=== PATIENT | female | born 1980 | race Caucasian/White ===

== ENCOUNTER 2017-04-22 21:19 | Emergency (ER) | payer MEDICAID ==
[~2017-04-22] VITALS: Ht 175.3 cm; Wt 84.2 kg
[2017-04-22 21:19] VITALS: BP 118/84
[~2017-04-22 21:19] MED LIST: AZIT250T PO; BACDS PO; CARB15DR91 RIGHT EAR; CEPH-357 PO; FLUO20CA39 PO; HYDR-3965 PO; IVER3TAB2 PO; RIZA10TA27 PO; ZES10T PO
[2017-04-22] MEDS ORDERED: HYDROcodone/acetaminophen 10/325mg tab PO ONE (21:35)
[2017-04-22] MEDS ORDERED: NAPR-1154 PO (21:35)
== END 2017-04-22 21:49 | disposition home or self-care (01) ==
LOC: ER 21:19
DX: K08.89 Other specified disorders of teeth and supporting structures (principal); I10 Essential (primary) hypertension; J45.909 Unspecified asthma, uncomplicated; F15.10 Other stimulant abuse, uncomplicated; F11.10 Opioid abuse, uncomplicated; F17.210 Nicotine dependence, cigarettes, uncomplicated; Z88.0 Allergy status to penicillin; Z79.899 Other long term (current) drug therapy
CPT/HCPCS: 99283

== ENCOUNTER 2018-01-18 11:09 | Emergency (ER) | payer MEDICAID ==
[~2018-01-18] VITALS: Ht 175.3 cm; Wt 83.8 kg
[~2018-01-18 11:09] MED LIST changes: +NAPR-1154 PO
[2018-01-18 11:12] VITALS: BP 129/79
[2018-01-18] MEDS ORDERED: ALBU8.5H8 IH (11:38)
[2018-01-18] MEDS ORDERED: GUAI473S11 PO (11:38)
[2018-01-18] MEDS ORDERED: GUAI600T45 PO (11:38)
== END 2018-01-18 11:50 | disposition home or self-care (01) ==
LOC: ER 11:10
DX: J32.0 Chronic maxillary sinusitis (principal); R05 Cough; J45.909 Unspecified asthma, uncomplicated; I10 Essential (primary) hypertension; F17.200 Nicotine dependence, unspecified, uncomplicated; F15.90 Other stimulant use, unspecified, uncomplicated; F11.90 Opioid use, unspecified, uncomplicated; Z88.0 Allergy status to penicillin; Z79.2 Long term (current) use of antibiotics; Z79.899 Other long term (current) drug therapy
CPT/HCPCS: 99283

== ENCOUNTER 2021-01-26 13:46 | Emergency (ER) | payer MEDICAID ==
[~2021-01-26] VITALS: Ht 175.3 cm; Wt 88.6 kg
[~2021-01-26 13:46] MED LIST changes: +ALBU8.5H17 IH; +GUAI600T45 PO
[2021-01-26 14:24] VITALS: BP 137/84
--- NOTE | 2021-01-26 16:32 | NUR ---
Pt sustained a laceration to L index finger while cutting boxes. Bleeding is controlled.
[2021-01-26] MEDS ORDERED: LIDOcaine 1% 30ml preserv. free vial IJ ONE (16:45)
[2021-01-26] MEDS ORDERED: TETanus/Pertussis (Acell)/Diphther VAC/PF (Tdap-Adult) 0.5ml syringe IMVAC ONE (16:45)
[2021-01-26] MEDS ORDERED: mupirocin 2% ointment 22GM TP ONE (16:55)
== END 2021-01-26 18:58 | disposition home or self-care (01) ==
LOC: ER 13:46
DX: S61.211A Laceration without foreign body of left index finger without damage to nail, initial encounter (principal); W26.8XXA Contact with other sharp object(s), not elsewhere classified, initial encounter; Y93.89 Activity, other specified; Y92.89 Other specified places as the place of occurrence of the external cause; Y99.8 Other external cause status
CPT/HCPCS: 73140; 90471; 90715; 99283

== ENCOUNTER 2022-12-21 09:27 | Emergency (ER) | payer MEDICAID, OTHER ==
[~2022-12-21] VITALS: Ht 175.3 cm; Wt 85.5 kg
[~2022-12-21 09:27] MED LIST changes: +RIZA-5 PO; -RIZA10TA27 PO
[2022-12-21 09:57] VITALS: BP 146/92; PULSE 99; RESP 20; O2SAT 98
[2022-12-21] MEDS ORDERED: methylPREDNISolone sod succ 125mg/2ml vial IM ONE (11:20)
[2022-12-21] MEDS ORDERED: ALBU6.7H14 INH (11:34)
[2022-12-21] MEDS ORDERED: AZIT250T82 PO (11:34)
== END 2022-12-21 12:07 | disposition home or self-care (01) ==
LOC: ER 09:27
DX: J06.9 Acute upper respiratory infection, unspecified (principal); H93.19 Tinnitus, unspecified ear; I10 Essential (primary) hypertension; J45.909 Unspecified asthma, uncomplicated; F15.90 Other stimulant use, unspecified, uncomplicated; F11.90 Opioid use, unspecified, uncomplicated; Z72.89 Other problems related to lifestyle; Z88.0 Allergy status to penicillin; Z91.018 Allergy to other foods; Z79.2 Long term (current) use of antibiotics; Z79.899 Other long term (current) drug therapy
CPT/HCPCS: 96372; 99283; J2930